=== PATIENT | male | born 1960 | race Caucasian/White ===

== ENCOUNTER 2022-01-09 15:46 | Outpatient (CLI) | payer OTHER, SELFPAY ==
--- NOTE | ~2022-01-09 | US_ITS ---
EXAMINATION: US venous doppler [facility] DATE: 01/09/2022 16:34 INDICATION: Left lower limb swelling. TECHNIQUE: Grayscale ultrasound images without and with compression and Doppler ultrasound images of the left lower extremity veins were obtained. COMPARISON: Ultrasound 03/09/2018 FINDINGS: The visualized portions of left common femoral vein, profunda (deep) femoral vein, peroneal veins, po sterior tibial veins, and greater saphenous vein outflow are patent. There is thrombus in left femora l and popliteal veins. IMPRESSION: 1. Deep vein thrombosis involving left femoral and popliteal veins with improvement from 03/09/2018. Reviewed, dictated and finalized at location A. IMPRESSION: 1. Deep vein thrombosis involving left femoral and popliteal veins with improv ement from 03/09/2018.
== END 2022-01-09 15:47 | disposition home or self-care (01) ==
PROVIDERS: PCP Internal Medicine; Visit Provider Internal Medicine
DX: I82.412 Acute embolism and thrombosis of left femoral vein (principal); I82.432 Acute embolism and thrombosis of left popliteal vein
CPT/HCPCS: 93971

== ENCOUNTER 2024-11-16 01:03 | Day surgery (SDC) | payer OTHER, SELFPAY ==
[2024-11-01 15:14] VITALS: BMI 30.4
--- NOTE | 2024-11-04 11:14 | PC.NURSE ---
Spoke with _patient_ regarding medication _Xarelto. _Patient_verbalizes understanding that the last dose is to be taken on _11/07/2024_ and the Endoscopist will instruct them when to restart after the procedure.
--- NOTE | 2024-11-10 16:21 | PC.NURSE ---
Spoke with patient regarding medication xarelto. Patient verbalizes understanding that the last dose is to be taken on 11/12/2024 and the Endoscopist will instruct them when to restart after the procedure.
--- OUTSIDE RECORDS SUMMARY | 2024-11-16 01:06 | XMS_ITS | Clinical Summary ---
Author Organization [facility] Address [address] [place] [address] Care Team Providers Care Sugar Grinder Name Role Phone Magno Espitia MD Primary Care Provider [phone] Social History Tobacco Use Types Packs/Day Years Used Date Smoking Tobacco: Never Assessed Sex and Gender Information Value Date Recorded Sex Assigned at Not on file Legal Sex Male 3:22 PM CDT Gender Identity Not on file Sexual Orientation Not on file Plan of Treatment Health Maintenance Due Date Last Done Comments Colorectal Cancer Screening Colonoscopy (10 Years) 1960 Annual Physical 1963 Hepatitis C 1978 DTaP, Tdap and Td Vaccines ( 1 - Tdap) 1979 Zoster Vaccines (1 of 2) 2010 COVID-19 Vaccine (2 - 2023-2 5 season) 2024 12/20/2020 Influenza Adult (#1) 2024 RSV Immunization or 60+ Years (1 - 1-dose 75+ series) 2035 Meningococcal B Vaccine Aged Out No l onger eligible based on patient's age to complete this topic Meningococcal Vaccine Aged Out No perry michele eligible based on patient's age to complete this topic Pneumococcal Vaccine: Pediat rics (0 to 5 Years) and At-Risk Patients (6 to 64 Years) Aged Out No longer eligi ble based on patient's age to complete this topic RSV Immunizations Under 20 Months Aged Out No longer eligible based on patient's age to complete this topic Insurance AETNA Care Teams Sugar Grinder Relationship Specialty Start Date End Date Magno Espitia MD [address] [place] [address] PCP - General INTERNAL MEDICINE 01/16/21
[2024-11-16 10:17] VITALS: BP 133/89; PULSE 74; RESP 20; TEMP 36.3; O2SAT 99
[2024-11-16] MEDS: LACTATED RINGERS 1,000 ML 150 ML IV CONT (10:27)
--- NOTE | 2024-11-16 10:47 | P.PNAN_ITS ---
Anes - Initial Pre Proc Eval Procedure: Operation Date: 11/16/24 11:00 Proposed Procedures p Screening Colonoscopy - Saturnino Lopez MD Date/Time: 11/16/24 10:47 Surgeon: Saturnino Lopez MD Pre Op Diagnosis: personal history colon polyps Patient Data Age: 64 Gender: M Height: 1.73 m Weight: 86.9 kg Last Vital Signs Temp 36.3 C L 11/16/24 10:17 Pulse 74 11/16/24 10:17 Resp 20 11/16/24 10:17 BP 133/89 11/16/24 10:17 Pulse Ox 99 11/16/24 10:17 O2 Del Method Room Air 11/16/24 10:17 Allergies Allergy/AdvReac Type Severity Reaction Status Date / Time No Known Allergies Allergy Verified 11/16/24 10:15 Home Medications ?Medication ?Instructions ?Recorded ?Confirmed ?Type allopurinol 100 mg tablet 100 mg PO DAILY #90 tabs 06/14/24 11/16/24 Rx lisinopril 20 1 tablet PO DAILY #90 tabs 06/14/24 11/16/24 Rx mg-hydrochlorothiazide 25 mg tablet rivaroxaban 20 mg tablet (Xarelto) 20 mg PO DAILY #90 tabs 06/14/24 11/16/24 Rx rosuvastatin 5 mg tablet See Rx Instructions .Route 06/14/24 11/16/24 Rx .COMPLEX #90 tabs Patient hx anesthesia problems: none Family hx anesthesia problems: none Results Review: All pre-operative results and documents have been reviewed as part of the pre- operative evaluation. [facility] Social History Social History Smoking status: Light tobacco smoker Tobacco type: cigars Second hand tobacco smoke exposure: No Alcohol intake: current Drinks per week: 5 Alcohol use details: socially Substance use: never Lack of Transportation: No Lack of Food: Never True Current Housing: I Have Housing Concerned About Future Housing: No Difficulty Paying Gas/Electric Bills: No Difficulty Paying for Meds: No Currently Unemployed: No Education: High School Diploma/GED Difficulty w/ Childcare or Family Care: No Living arrangements: with family Additional living arrangements comments: with Spiritual care concerns: No Anes - Eval Final PreProcedure Day of Procedure 11/16/24 10:47 Patient weight: overweight Heart: regular rate and rhythm Lungs: decreased breath sounds Airway: Mallampati scale class II Neurological: alert and oriented Last oral intake: >/= 8 hours ASA classification: III Emergent: no Anesthetic plan: proceed Anesthesia type and monitoring: general GIVS and standard monitoring Results Review: All pre-operative results and documents have been reviewed as part of the pre- operative evaluation. Informed Consent: The patient's anesthetic plan and its attendant risks and benefits were discussed with the patient/family/POA. Questions were solicited and answers provided to the satisfaction of the patient/family/POA.
--- NOTE | 2024-11-16 10:52 | PM.IMHP ---
H&P: HPI History of Present Illness Date/Time: 11/16/24 10:52 Chief Complaint: History of polyps Narrative: The patient has a history of colonic polyps, the last colonoscopy was 5 years ago Review of Systems Review of Systems: All systems reviewed & are unremarkable except as noted in HPI and below PMFSH Social History Social History Smoking status: Light tobacco smoker Tobacco type: cigars Second hand tobacco smoke exposure: No Alcohol intake: current Drinks per week: 5 Alcohol use details: socially Substance use: never Lack of Transportation: No Lack of Food: Never True Current Housing: I Have Housing Concerned About Future Housing: No Difficulty Paying Gas/Electric Bills: No Difficulty Paying for Meds: No Currently Unemployed: No Education: High School Diploma/GED Difficulty w/ Childcare or Family Care: No Living arrangements: with family Additional living arrangements comments: with Spiritual care concerns: No Meds Home Medications and Allergies Home Medications ?Medication ?Instructions ?Recorded ?Confirmed ?Type allopurinol 100 mg tablet 100 mg PO DAILY #90 tabs 06/14/24 11/16/24 Rx lisinopril 20 1 tablet PO DAILY #90 tabs 06/14/24 11/16/24 Rx mg-hydrochlorothiazide 25 mg tablet rivaroxaban 20 mg tablet (Xarelto) 20 mg PO DAILY #90 tabs 06/14/24 11/16/24 Rx rosuvastatin 5 mg tablet See Rx Instructions .Route 06/14/24 11/16/24 Rx .COMPLEX #90 tabs Allergies Allergy/AdvReac Type Severity Reaction Status Date / Time No Known Allergies Allergy Verified 11/16/24 10:15 Vital Signs Vital Signs - 24 hr 11/16/24 10:17 Temperature 97.4 F L Pulse Rate 74 Respiratory Rate 20 Blood Pressure 133/89 Pulse Oximetry 99 Oxygen Delivery Room Air Exam Const: General: cooperative and healthy appearing Resp: Effort & Inspection: normal respiratory effort and able to speak in complete sentences Auscultation: clear to auscultation bilaterally Cardio: Rate: regular rate Rhythm: regular rhythm GI: Inspection: normal to inspection GI Palp: No No hepatosplenomegaly present Auscultation: normal bowel sounds Rectal Exam: deferred Skin: General skin exam: normal color Psych: Appearance: grossly normal Mental Status: mental status grossly normal Assessment and Plan Assessment and plan (1) Colon cancer screening: Code(s): Z12.11 - Encounter for screening for malignant neoplasm of colon Status: Acute Assessment and Plan: The patient is deemed a good candidate for the procedure. Consent signed. Will proceed.
[2024-11-16 11:12] VITALS: BP 119/71; PULSE 65; RESP 19; O2SAT 98
[2024-11-16 11:22] VITALS: BP 141/88; PULSE 63; RESP 20; O2SAT 99
[2024-11-16 11:32] VITALS: BP 124/79; PULSE 60; RESP 19; O2SAT 96
== END 2024-11-16 11:40 | disposition home or self-care (01) ==
PROVIDERS: PCP Family Medicine; Visit Provider Internal Medicine Gastroenterology
PROC: 0DJD8ZZ Inspection of Lower Intestinal Tract, Via Natural or Artificial Opening Endoscopic (ICD-10-PCS; CPT 45378; principal; 2024-11-16 11:00)
DX: Z12.11 Encounter for screening for malignant neoplasm of colon (principal); K64.4 Residual hemorrhoidal skin tags; K57.30 Diverticulosis of large intestine without perforation or abscess without bleeding; F17.290 Nicotine dependence, other tobacco product, uncomplicated; Z79.01 Long term (current) use of anticoagulants; Z86.0100 Personal history of colon polyps, unspecified
CPT/HCPCS: 45378; J2003; J2704; J7120

== ENCOUNTER 2025-01-26 07:19 | Outpatient (CLI) | payer OTHER, SELFPAY ==
--- NOTE | ~2025-01-26 | PE_ITS ---
EXAMINATION: PET_PETPSMAST_PT DATE: 01/26/2025 09:43 INDICATION: Prostate cancer TECHNIQUE: 5.033 mCi of Illucix Ga-68([id number]) was administered i.v. Low dose computed sharona graphy (CT) images were acquired from the base of the brain to the base of the brain to the proximal thighs for attenuation correction and anatomic localization. Positron emission tomography (PET) image s were acquired in the same distribution beginning 84 minutes after injection. Images including fused PET/CT images were reconstructed in axial, coronal, and sagittal planes. Automated exposure control technique was employed. The dose-length product was 1215.60mGy-cm. COMPARISON: None FINDINGS: Head/neck: Typical pattern of symmetric physiologic increased activity in the lacrimal, parotid and submandibula r glands as well as along the mucosa of the nasal and oral cavities, pharynx and hypopharynx. No path ologically enlarged cervical lymphadenopathy or suspicious foci of increased uptake in the visualized head or neck. Chest: No pulmonary nodules, pneumonia, pulmonary edema or pleural effusion. Heart size is normal. Atheroscl erotic coronary artery calcification. Aortic valve calcification. No pericardial effusion. Vascular i s normal in caliber. Bilateral gynecomastia. No pathologically enlarged or PSMA avid thoracic lymphad enopathy. Abdomen/pelvis/proximal thighs: Physiologic renal accumulation and excretion of activity in the kidneys, bladder and along portions o f ureters. Prostatomegaly measuring 6.5 x 5.1 cm with heterogeneous uptake with maximal SUV of 3.8. N ormal degree and slightly heterogenous pattern of increased uptake throughout the liver and spleen wi thout radiologic correlate or dominant PSMA avid lesion. The gallbladder, pancreas and bilateral adre nal glands are normal. Moderate uptake scattered throughout the bowels with typical duodenal and prox imal jejunal predominance and without radiologic correlate, also likely physiologic. No other abnorma l foci of increased uptake or pathologically enlarged lymphadenopathy in the abdomen, pelvis or proxi mal thighs. Musculoskeletal: Severe lumbar spondylosis. Normal anatomic variant the acromial os acromiale he at the left shoulder. No suspicious lytic, blastic or abnormally PSA may avid bone lesions to suggest osseous metastatic d isease. IMPRESSION: 1. Heterogeneous mild PSMA uptake in the enlarged prostate consistent with reported prior prostate ca ncer. No lesions suspicious for metastatic disease. Reviewed, dictated and finalized at location A. IMPRESSION: 1. Heterogeneous mild PSMA uptake in the enlarged prostate consistent with repo rted prior prostate cancer. No lesions suspicious for metastatic disease.
--- OUTSIDE RECORDS SUMMARY | 2025-01-26 07:25 | XMS_ITS | Clinical Summary ---
Author Organization [facility] Address [address] [place] [address] Care Team Providers Care Top Frame Fitter Name Role Phone Magno Espitia MD Primary Care Provider [phone] Social History Tobacco Use Types Packs/Day Years [...] (2 - 2023-2 5 season) 2024 12/20/2020 RSV Immunization or 60+ Years (1 - 1-dose 75+ series) 2035 Meningococcal B Vaccine Aged Out No l onger eligible based on patient's age to complete this topic Meningococcal Vaccine Aged Out No perry michele eligible based on patient's age to complete this topic Pneumococcal Vaccine: Pediat rics (0 to 5 Years) and At-Risk Patients (6 to 49 Years) Aged Out No longer eligi ble based on patient's age to complete this topic RSV Immunizations Under 20 Months Aged Out No longer eligible based on patient's age to complete this topic Insurance AETNA Care Teams Top Frame Fitter Relationship Specialty Start Date End Date Magno Espitia MD [address] [place] [address] PCP - General INTERNAL MEDICINE 01/16/21
--- OUTSIDE RECORDS SUMMARY | 2025-01-26 07:25 | XMS_ITS | Clinical Summary ---
Author Organization [facility] Address [address] [place] [address] Care Team Providers Care Intelligence Manager Name Role Phone Unavailable Primary Care Provider Unavailabl e Source Comments [facility],non-owned Affiliates and Associated Physician Practices is amultiple site organization consisting of ambulatory clinics and hospital sitesin [place], [place], [place] and [place]. This disclosure is being madepursuant to the Care Everywhere program and may not contain all information available regarding this patient. 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 Gender Identity Not on file Sexual Orientation Not on file Plan of Treatment Health Maintenance Due Date Last Done Comments COLOGUARD (AGES 45-75) - COL ON CA SCREENING 1960 COLON MONITORING 1960 COLONOSCOPY - COLON CA SCREENING 1960 CT COLONOGRAPHY - COLON CA SCREENING 1960 Colorectal Cancer Screening 1960 FIT - COLON CA SCREENING 1960 FLEX SIG - COLON CA SCREENING 1960 LIPID TESTING 1960 HIV SCREENING 1975 HEPATITIS C SCREENING 05/17/1978 DTAP/TDAP/TD VACCINES (1 - Tdap) 1979 PNEUMOCOCCAL VACCINE 50+ (1 of 1 - PCV) 2010 ZOSTER VACCINE (1 of 2) 2010 COVID-19 VACCINE ( - 2023-2 5 season) 2024 DEPRESSION SCREENING 10/12/2024 INFLUENZA VACCINE (Season Ended) 2025 Respiratory Syncytial Virus (RSV) Vaccine Pt: or over 60 yrs (1 - 1-dose 75+ series) 2035 HEPATITIS B VACCINE Aged Out No longe r eligible based on patient's age to complete this topic HIB VACCINE Aged Out No longer eligi ble based on patient's age to complete this topic HPV VACCINE Aged Out No longer eligi ble based on patient's age to complete this topic MENINGOCOCCAL (Group B) VACC INE SHARED DECISION-MAKING Aged Out No longer eligibl e based on patient's age to complete this topic MENINGOCOCCAL GROUPS A/C/Y/W VACCINE Aged Out No longer eligible b ased on patient's age to complete this topic Procedures Procedure Name Priority Date/Time Associated Diagnosis Comments DERMATOPATHOLOGY Routine 01/13/2025 3:33 AM CDT from Last 3 Months Results * DERMATOPATHOLOGY (01/13/2025 3:33 AM CDT) Case Report Dermatopathology Report Case: [id number] Authorizing Provider: Rachell Raymundo MD Collected: 01/13/2025 03:33 AM Ordering Location: [facility] - Received: 01/16/2025 02:25 PM DermPath Lab Pathologist: Gaviota Burdick MD Specimen: Skin, left anterior proximal upper arm 1:00 PM CDT DERMATOPATHOLOGY LABORATORY Final Diagnosis Specimen A. SKIN, left anterior proximal upper arm: BASAL CELL CARCINOMA, FOCAL RESIDUAL (C44.619) NOT PRESENT AT MARGIN DERMAL SCAR (L90.5) (see microscopic description) 1:00 PM CDT DERMATOPATHOLOGY LABORATORY Clinical History BCC Check margins/prior biopsy 1:00 PM CDT DERMATOPATHOLOGY LABORATORY Gross Description Specimen A: Received is one formalin filled container labeled with the patient's name and designated left anterior proximal upper arm. The specimen consists of a non-oriented ellipse of skin measuring [id number] mm. The epidermal surface is unremarkable. The margin is inked green. The 12 o'clock and 6 o'clock tips are submitted in cassette 1. The remainder of the ellipse is serially sectioned and submitted in cassette 2-3. Jar 0. 5 1:00 PM CDT DERMATOPATHOLOGY LABORATORY Microscopic Description Specimen A. SKIN, left anterior proximal upper arm: The dermis is infiltrated by nests of basaloid cells that show peripheral palisading and are associated with fibromyxoid stroma. Both mitotic figures and necrotic cells are identified. There are also areas with squamoid features. This lesion is not present at the margin of the specimen. There are fibroblasts and collagen bundles oriented parallel to the skin surface with elongated blood vessels, some of which are oriented perpendicular to the skin surface. 1:00 PM CDT DERMATOPATHOLOGY LABORATORY Disclaimer An external and internal positive and negative controls are appropriate for the histochemical, immunohistochemical and immunofluorescence stain(s) in this case (if any), except where stated explicitly. The performance characteristics of the stain(s) cited in this report were developed and its performance characteristic determined by the Dermatopathology Laboratory at [facility], directed by Dr. Edwar Godinez. These tests need not be, and therefore are not, approved by the [place] Food and Drug Administration. The tests are used for clinical purposes. Billing Codes Specimen Charges Stain Charges 30252 1 5 1:00 PM CDT DERMATOPATHOLOGY LABORATORY Embedded Images 1:00 PM CDT DERMATOPATHOLOGY LABORATORY Pathology/Cytolo gy TISSUE SPECIMEN FROM SKIN / Unknown 01/13/2025 3:33 AM CDT 01/16/2025 2:25 PM CDT Rachell Raymundo MD LAB - PATHOLOGY/CYTOLOGY ORDERAB LES Final Result DERMATOPATHOLOGY LABORATORY [facility] - Department of Dermatology [facility] Medicine [address] [place] [address], [address] [place] [address], [facility] [phone] from Last 3 Months Insurance AETNA AETNA
--- OUTSIDE RECORDS SUMMARY | 2025-01-26 07:25 | XMS_ITS | Encounter Summary ---
Author Organization [facility] Address [address] [address] Care Team Providers Care Produce Production Team Member Name Role Phone Unavailable Primary Care Provider Unavailabl e Encounter Details Date Type Department Care Team (Late st Contact Info) Description 01/16/2025 Lab Requisition [facility] - DermPath Lab [address] [facility] [address], [place] [phone] Rachell Raymundo MD [address] [place] [address] [place] [address] Social History Tobacco Use Types Packs/Day Years Used Date Smoking Tobacco: Never Assessed Sex and Gender Information Value Date Recorded Sex Assigned at Not on file 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 Gender Identity Not on file Sexual Orientation Not on file documented as of this encounter Plan of Treatment Not on file documented as of this encounter Procedures Procedure Name Priority Date/Time Associated Diagnosis Comments DERMATOPATHOLOGY Routine 01/13/2025 3:33 AM CDT documented in this encounter Results * DERMATOPATHOLOGY (01/13/2025 3:33 AM CDT) Case Report Dermatopathology Report Case: [id number] Authorizing Provider: Rachell Raymundo MD Collected: 01/13/2025 03:33 AM Ordering Location: [facility] - Received: 01/16/2025 02:25 PM DermPath Lab Pathologist: Gaviota Burdick MD Specimen: Skin, left anterior proximal upper arm 1:00 PM CDT DERMATOPATHOLOGY LABORATORY Final Diagnosis Specimen A. SKIN, left anterior proximal upper arm: BASAL CELL CARCINOMA, FOCAL RESIDUAL (C44.619) NOT PRESENT AT MARGIN DERMAL SCAR (L90.5) (see microscopic description) 1:00 PM CDT DERMATOPATHOLOGY LABORATORY Clinical History BCC Check margins/prior biopsy 1:00 PM T DERMATOPATHOLOGY LABORATORY Gross Description Specimen A: Received is one formalin filled container labeled with the patient's name and designated left anterior proximal upper arm. The specimen consists of a non-oriented ellipse of skin measuring [id number] mm. The epidermal surface is unremarkable. The margin is inked green. The 12 o'clock and 6 o'clock tips are submitted in cassette 1. The remainder of the ellipse is serially sectioned and submitted in cassette 2-3. Jar 0. 1:00 PM T DERMATOPATHOLOGY LABORATORY Microscopic Description Specimen A. SKIN, [...] perpendicular to the skin surface. 1:00 PM T DERMATOPATHOLOGY LABORATORY Disclaimer An external and internal positive and negative controls are appropriate for the histochemical, immunohistochemical and immunofluorescence stain(s) in this case (if any), except where stated explicitly. The performance characteristics of the stain(s) cited in this report were developed and its performance characteristic determined by the Dermatopathology Laboratory at [facility], directed by Dr. Edwar Godinez. These tests need not be, and therefore are not, approved by the [place] Food and Drug Administration. The tests are used for clinical purposes. Billing Codes Specimen Charges Stain Charges 36366 1 1:00 PM CDT DERMATOPATHOLOGY LABORATORY Embedded Images 1:00 PM T DERMATOPATHOLOGY LABORATORY Pathology/Cytolo gy TISSUE SPECIMEN FROM SKIN / Unknown 01/13/2025 3:33 AM CDT 01/16/2025 2:25 PM CDT Rachell Raymundo MD LAB - PATHOLOGY/CYTOLOGY ORDERAB LES Final Result DERMATOPATHOLOGY LABORATORY [facility] - Department of Dermatology [facility] [facility], [address] [phone] documented in this encounter Visit Diagnoses Not on filedocumented in this encounter
== END 2025-01-26 07:20 | disposition home or self-care (01) ==
PROVIDERS: PCP Family Medicine; Visit Provider Radiology Radiation Oncology
DX: C61 Malignant neoplasm of prostate (principal); Z51.0 Encounter for antineoplastic radiation therapy; Z19.1 Hormone sensitive malignancy status
CPT/HCPCS: 78815; A9596